=== PATIENT | male | born 1995 | race Caucasian/White ===

== ENCOUNTER → 2017-06-11 | Emergency (ER) | payer OTHER ==
[~2017-06-11] MED LIST: CHLORHEXIDINE GLUCONATE 4% CLEANSER FOR DECOLONIZATION TP SCH; CLINDAMYCIN 600MG PREMIX IVPB 600 MG/50 ML BAG IVPB ONE; CLINDAMYCIN PHOSPHATE 600 MG/4 ML VIAL ONE; DEXAMETHASONE SOD PHOSPHATE 10 MG/1 ML VIAL IVPUSH ONE; DEXAMETHASONE SOD PHOSPHATE 10 MG/1 ML VIAL ONE; DEXTROSE 5%-0.45% SALINE 1,000 ML IV SCH; MUPIROCIN 2% TOPICAL OINTMENT FOR DECOLONIZATION NS SCH; SODIUM CHLORIDE 1,000 ML IV STA
--- NOTE | 2017-06-11 12:04 | PDOC ---
History of Present Illness - General Chief Complaint: Sore Throat Stated Complaint: SORE THROAT Time Seen by Provider: 06/11/17 12:04 History Source: Patient, Parent(s) Exam Limitations: No Limitations - History of Present Illness Initial Comments: 21 yo M no significant PMH presents with 1 week history of URI symptoms- congestion, cough, chills, and throat pain. He states that the other symptoms have been improving, but that the throat pain has worsened. He states that today he noticed swelling under his jaw towards the left side. No fever. He has pain with swallowing, but he has been able to tolerate PO liquids and food, and he is tolerating his own secretions. Past History - Past Medical History Allergies/Adverse Reactions: Allergies Allergy/AdvReac Type Severity Reaction Status Date / Time No Known Allergies Allergy Verified 06/11/17 12:02 Home Medications: Ambulatory Orders NK [No Known Home Medication] 06/11/17 Review of Systems - Review of Systems Able to Perform ROS?: Yes Comments:: GENERAL/CONSTITUTIONAL: No fever. +Chills few days ago, resolved. No weakness. HEAD, EYES, EARS, NOSE AND THROAT: No change in vision. No ear pain or discharge. +Sore throat. CARDIOVASCULAR: No chest pain or shortness of breath. RESPIRATORY: No cough, wheezing, or hemoptysis. GASTROINTESTINAL: No nausea, vomiting, diarrhea or constipation. GENITOURINARY: No dysuria, frequency, or change in urination. MUSCULOSKELETAL: No joint or muscle swelling or pain. No neck or back pain. SKIN: No rash NEUROLOGIC: No headache, vertigo, loss of consciousness, or change in strength/ sensation. ENDOCRINE: No increased thirst. No abnormal weight change. HEMATOLOGIC/LYMPHATIC: No anemia, easy bleeding, or history of blood clots. ALLERGIC/IMMUNOLOGIC: No hives or skin allergy. *Physical Exam - Physical Exam Comments: GENERAL: Awake, alert, and fully oriented, in no acute distress HEAD: No signs of trauma EYES: PERRLA, EOMI, sclera anicteric, conjunctiva clear ENT: Auricles normal inspection, hearing grossly normal, nares patent, oropharynx clear without exudates. Moist mucosa. No tonsillar exudates. NECK: Normal ROM. No JVD. +Submandibular lymphadenopathy, L>>R. Compartments of the neck are soft. No trismus. Normal phonation. LUNGS: Breath sounds equal, clear to auscultation bilaterally. No wheezes, and no crackles HEART: Regular rate and rhythm, normal S1 and S2, no murmurs, rubs or gallops ABDOMEN: Soft, nontender, normoactive bowel sounds. No guarding, no rebound. No masses EXTREMITIES: Normal range of motion, no edema. No clubbing or cyanosis. No cords, erythema, or tenderness NEUROLOGICAL: Cranial nerves II through XII grossly intact. Normal speech, normal gait SKIN: Warm, Dry, normal turgor, no rashes or lesions noted. ED Treatment Course - LABORATORY CBC & Chemistry Diagram: 06/11/17 12:29 06/11/17 12:29 Medical Decision Making - Medical Decision Making 06/11/17 16:43 D/w Imaging care transition mgr. CT shows soft tissue involvement in left larynx, aryepiglottic fold. Will plan for admission. I will give clinda. I have already given decadron 10 mg. Patient has remained unchanged in ED- no worsening of symptoms. 06/11/17 17:33 Case d/w Dr. Maloney. Patient is tolerating solids and liquids PO in ED, tolerating secretions, no trismus. Recommended admission to floors, upgrade to ICU if any change in condition. D/w hospitalist, accepting patient to med/surg at [facility]. 06/11/17 17:58 No floor beds available at [facility]. D/w Dr. Maloney again, who is willing to accept patient to ICU overnight. *DC/Admit/Observation/Transfer Diagnosis at time of Disposition: Adenitis - Discharge Dispostion Condition at time of disposition: Stable Admit: Yes - Referrals - Patient Instructions - Post Discharge Activity
[2017-06-11 12:06] VITALS: BMI 27.7
[2017-06-11 12:48] LABS: BASO % 1.6 % (0-2.0); EOS % 2.6 % (0-4.5); HEMATOCRIT 43.3 % (35.4-49); HEMOGLOBIN 14.8 GM/dl (11.7-16.9); LYMPH % 22.5 % (8-40); MCH 28.6 pg (25.7-33.7); MCHC 34.2 g/dl (32.0-35.9); MEAN CELL VOLUME 83.8 fl (80-96); MEAN PLT VOLUME 7.6 fl (7.5-11.1); MONO % 7.4 % (3.8-10.2); NEUT % 65.9 % (42.8-82.8); PLATELET COUNT 284 K/MM3 (134-434); RBC 5.17 M/mm3 (4.00-5.60); RDW 11.5 % (11.9-15.9); WHITE BLOOD COUNT 5.1 K/mm3 (4.0-10.8)
[2017-06-11 12:52] LABS: INR 1.26 (0.82-1.09)
[2017-06-11 12:56] LABS: ALBUMIN 3.9 g/dl (3.5-5.0); ALK PHOS 54 U/L (32-92); ANION GAP 8 (8-16); BILIRUBIN,TOTAL 1.5 mg/dl (0.2-1.0); BLOOD UREA NITROGEN 13 mg/dl (7-18); CALCIUM 9.2 mg/dl (8.4-10.2); CHLORIDE 101 mmol/L (98-107); CO2 26 mmol/L (22-28); CREATININE 0.8 mg/dl (0.6-1.3); GLUCOSE,RANDOM 80 mg/dl (74-106); POTASSIUM 3.9 mmol/L (3.5-5.1); SGOT/AST 21 U/L (10-42); SGPT/ALT 17 U/L (10-40); SODIUM 135 mmol/L (136-145); TOT PROT 7.7 g/dl (6.4-8.3)
--- NOTE | 2017-06-11 21:30 | PDOC ---
*Physical Exam - Vital Signs Last Vital Signs Temp Pulse Resp BP Pulse Ox 98.9 F 75 16 111/66 98 06/11/17 20:09 06/11/17 20:09 06/11/17 12:01 06/11/17 20:09 06/11/17 20:09 ED Treatment Course - LABORATORY CBC & Chemistry Diagram: 06/11/17 12:29 06/11/17 12:29 - ADDITIONAL ORDERS Additional order review: Laboratory Results 06/11/17 06/11/17 06/11/17 13:31 12:29 12:29 PT with INR INR Sodium 135 L Potassium 3.9 Chloride 101 Carbon Dioxide 26 Anion Gap 8 BUN 13 Creatinine 0.8 Creat Clearance w eGFR > 60 Random Glucose 80 Calcium 9.2 Total Bilirubin 1.5 H AST 21 ALT 17 Alkaline Phosphatase 54 Total Protein 7.7 Albumin 3.9 Blood Type O POSITIVE O POSITIVE Antibody Screen Negative 06/11/17 12:29 PT with INR 14.0 H INR 1.26 H Sodium Potassium Chloride Carbon Dioxide Anion Gap BUN Creatinine Creat Clearance w eGFR Random Glucose Calcium Total Bilirubin AST ALT Alkaline Phosphatase Total Protein Albumin Blood Type Antibody Screen 06/11/17 12:30 Group A Strep Rapid Antigen - Final Throat 06/11/17 12:29 RBC 5.17 MCV 83.8 MCHC 34.2 RDW 11.5 L MPV 7.6 Neutrophils % 65.9 Lymphocytes % 22.5 Monocytes % 7.4 Eosinophils % 2.6 Basophils % 1.6 - Medications Given in the ED: ED Medications Discontinued Medications Generic Name Dose Route Start Last Admin Trade Name Freq PRN Reason Stop Dose Admin Dexamethasone Sodium Phosphate 10 mg 06/11/17 12:17 06/11/17 12:36 Decadron Injection - IVPUSH 06/11/17 12:18 10 mg ONCE ONE Administration Sodium Chloride 1,000 mls @ 1,000 mls/hr 06/11/17 12:17 06/11/17 12:36 Normal Saline - IV 06/11/17 13:16 1,000 mls/hr ASDIR STA Administration Clindamycin Phosphate 600 mg in 50 mls @ 100 mls/hr 06/11/17 16:39 06/11/17 16:52 Cleocin 600 Mg Premix Ivpb - IVPB 06/11/17 17:08 100 mls/hr ONCE ONE Administration Progress Note - Progress Note Progress Note: This patient was admitted to the ICU prior to my coming on duty. However I was just informed that the patient will not be getting an ICU bed. We do not have an ENT that can respond to emergencies here at this hospital. Since the CAT scan did show airway/larynx involvement of the soft tissue swelling and edema I am uncomfortable keeping the patient here in the ER until a bed becomes available. Called [facility] patient will be transferred to the ER there for evaluation and admission by the ENT service Dr. Landrum. *DC/Admit/Observation/Transfer Diagnosis at time of Disposition: Adenitis - Discharge Dispostion Condition at time of disposition: Stable - Referrals - Patient Instructions - Post Discharge Activity
[2017-06-11 21:51] VITALS: BP 135/80; PULSE 82; TEMP 98.5
== END | disposition short-term general hospital (02) ==
LOC: FER 12:01
PROC: 3E03329 Introduction of Other Anti-infective into Peripheral Vein, Percutaneous Approach (ICD-10-PCS; principal; 2017-06-11)
PROC: 3E033GC Introduction of Other Therapeutic Substance into Peripheral Vein, Percutaneous Approach (ICD-10-PCS; 2017-06-11)
PROC: 3E0337Z Introduction of Electrolytic and Water Balance Substance into Peripheral Vein, Percutaneous Approach (ICD-10-PCS; 2017-06-11)
DX: I88.9 Nonspecific lymphadenitis, unspecified (principal)
CPT/HCPCS: 36415; 70491-TC; 80053; 85025; 85610; 86850; 86900; 86901; 87040; 87070; 87430; 96361; 96365; 96375; 99283-25; J1100

== ENCOUNTER 2020-09-17 10:03 | Inpatient (IN) | payer OTHER ==
[2020-09-17 10:24] VITALS: BMI 33.5
[2020-09-17] MEDS ORDERED: METHOCARBAMOL 500 MG TABLET PO PRN (11:28)
[2020-09-17] MEDS ORDERED: METHADONE HCL 10 MG TABLET (FOR DETOX USE ONLY) PO ONE (11:28)
[2020-09-17] MEDS ORDERED: MENTHOL/PHENOL 1 EACH UD MM PRN (11:28)
[2020-09-17] MEDS ORDERED: MAGNESIUM CITRATE 300 ML BOTTLE PO PRN (11:28)
[2020-09-17] MEDS ORDERED: MAG HYDROX/AL HYDROX/SIMETH 30 ML UNIT-DOSE CUP PO PRN (11:28)
[2020-09-17] MEDS ORDERED: BISMUTH SUBSALICYLATE 262 MG/15 ML BTL PO PRN (11:28)
[2020-09-17] MEDS ORDERED: cloNIDine HCL 0.1 MG TABLET PO PRN (11:28)
[2020-09-17] MEDS ORDERED: ACETAMINOPHEN 325 MG TABLET (FP) PO PRN ×2 (11:28)
[2020-09-17] MEDS ORDERED: MAGNESIUM HYDROX 2400MG/30ML ORAL SUSPENSION 30 ML CUP PO PRN (11:28)
[2020-09-17] MEDS: PRENATAL VITAMINS W/ FOLIC ACID TABLET (FP) PO SCH (12:30)
[2020-09-17 13:13] LABS: HEMOGLOBIN 13.7 GM/dL (11.7-16.9); MCH 28.8 pg (25.7-33.7); MCHC 34.3 g/dl (32.0-35.9); MEAN PLT VOLUME 8.4 fl (7.5-11.1); PLATELET COUNT 212 K/MM3 (134-434); RBC 4.76 M/mm3 (4.00-5.60); RDW 12.6 % (11.9-15.9)
[2020-09-17 13:18] LABS: CALCIUM 8.6 mg/dL (8.5-10.1)
[2020-09-17 13:19] LABS: BLOOD UREA NITROGEN 18.1 mg/dL (7-18)
[2020-09-17 13:23] LABS: BILIRUBIN,TOTAL 0.9 mg/dL (0.2-1)
[2020-09-17 13:24] LABS: TOT PROT 7.1 g/dl (6.4-8.2)
[2020-09-17] MEDS: hydrOXYzine PAMOATE 25 MG CAPSULE (FP) PO SCH ×3 (13:33→22:22)
[2020-09-17 14:13] LABS: HIV INTERPRETATION NEGATIVE (NEGATIVE)
[2020-09-17] MEDS: MELATONIN 5 MG TABLETS PO SCH (22:22)
[2020-09-17] MEDS: THIAMINE HCL 100 MG TABLET (FP) PO SCH (22:22)
[2020-09-18] MEDS: hydrOXYzine PAMOATE 25 MG CAPSULE (FP) PO SCH ×5 (05:18→22:49)
[2020-09-18] MEDS ORDERED: METHADONE HCL 10 MG TABLET (FOR DETOX USE ONLY) ONE (09:32)
[2020-09-18] MEDS ORDERED: METHADONE HCL 5 MG TABLET (FOR DETOX USE ONLY) ONE (09:32)
[2020-09-18] MEDS ORDERED: METHADONE (DETOX) 20 MG, METHADONE (DETOX) 5 MG PO ONE (10:00)
[2020-09-18] MEDS: PRENATAL VITAMINS W/ FOLIC ACID TABLET (FP) PO SCH (10:32)
[2020-09-18] MEDS: diazePAM 5 MG TABLET PO PRN (18:17)
[2020-09-18] MEDS: MELATONIN 5 MG TABLETS PO SCH (22:49)
[2020-09-18] MEDS: THIAMINE HCL 100 MG TABLET (FP) PO SCH (22:49)
[2020-09-19] MEDS: hydrOXYzine PAMOATE 25 MG CAPSULE (FP) PO SCH ×5 (06:10→22:26)
[2020-09-19] MEDS ORDERED: METHADONE HCL 10 MG TABLET (FOR DETOX USE ONLY) PO ONE (10:00)
[2020-09-19] MEDS: PRENATAL VITAMINS W/ FOLIC ACID TABLET (FP) PO SCH (10:37)
[2020-09-19] MEDS: ONDANSETRON *ODT* 4 MG TABLET SL PRN ×2 (10:39→18:14)
[2020-09-19] MEDS: diazePAM 5 MG TABLET PO PRN ×2 (15:06→22:26)
[2020-09-19] MEDS: THIAMINE HCL 100 MG TABLET (FP) PO SCH (22:26)
[2020-09-19] MEDS: MELATONIN 5 MG TABLETS PO SCH (23:06)
[2020-09-20] MEDS: IBUPROFEN 400 MG TABLET (FP) PO PRN ×2 (05:36→22:39)
[2020-09-20] MEDS: ONDANSETRON *ODT* 4 MG TABLET SL PRN ×2 (05:37→22:39)
[2020-09-20] MEDS: hydrOXYzine PAMOATE 25 MG CAPSULE (FP) PO SCH ×5 (07:37→22:35)
[2020-09-20] MEDS ORDERED: METHADONE HCL 5 MG TABLET (FOR DETOX USE ONLY) ONE (08:49)
[2020-09-20] MEDS ORDERED: METHADONE HCL 10 MG TABLET (FOR DETOX USE ONLY) ONE (08:49)
[2020-09-20] MEDS ORDERED: METHADONE (DETOX) 10 MG, METHADONE (DETOX) 5 MG PO ONE (10:00)
[2020-09-20] MEDS: PRENATAL VITAMINS W/ FOLIC ACID TABLET (FP) PO SCH (10:05)
[2020-09-20 14:07] LABS: SARS-CoV-2 NAA Not Detected (Not Detected)
[2020-09-20] MEDS: MELATONIN 5 MG TABLETS PO SCH (22:35)
[2020-09-20] MEDS: THIAMINE HCL 100 MG TABLET (FP) PO SCH (22:35)
[2020-09-20] MEDS: diazePAM 5 MG TABLET PO PRN (22:37)
[2020-09-21] MEDS: hydrOXYzine PAMOATE 25 MG CAPSULE (FP) PO SCH (05:43)
[2020-09-21 09:13] VITALS: BP 127/74; PULSE 78; TEMP 98
[2020-09-21] MEDS ORDERED: METHADONE HCL 10 MG TABLET (FOR DETOX USE ONLY) PO ONE (10:00)
[2020-09-22] MEDS ORDERED: METHADONE HCL 5 MG TABLET (FOR DETOX USE ONLY) PO ONE (06:00)
== END 2020-09-21 10:02 | disposition home or self-care (01) | DRG 773 ==
LOC: YASAS 10:03 → Y6N 10:48
PROVIDERS: ADMIT Allergy & Immunology; ATTEND Allergy & Immunology
PROC: HZ2ZZZZ Detoxification Services for Substance Abuse Treatment (ICD-10-PCS; principal; 2020-09-17)
DX: F11.23 Opioid dependence with withdrawal (principal); F95.8 Other tic disorders; G24.5 Blepharospasm; H54.62 Unqualified visual loss, left eye, normal vision right eye; Z87.891 Personal history of nicotine dependence
CPT/HCPCS: 36415; 80053; 85027; 86780; 87389; 93005; 93010; C9803; Q0162; U0003; U0005

== ENCOUNTER 2021-12-31 22:45 | Emergency (ER) | payer OTHER ==
[2021-12-31 22:54] VITALS: BP 128/84; PULSE 60; RESP 18; TEMP 98; BMI 34.2
[2021-12-31] MEDS ORDERED: IBUPROFEN 400 MG TABLET (FP) PO ONE ×2 (23:16→23:41)
== END 2022-01-01 01:27 | disposition home or self-care (01) ==
LOC: JER 22:45
PROC: 0H9FXZZ Drainage of Right Hand Skin, External Approach (ICD-10-PCS; principal; 2021-12-31)
DX: L03.011 Cellulitis of right finger (principal)
CPT/HCPCS: 99283-25

== ENCOUNTER 2023-12-24 12:09 | Emergency (ER) | payer OTHER ==
[2023-12-24 12:19] VITALS: BP 123/85; PULSE 68; RESP 18; TEMP 98.7; BMI 36.9
[2023-12-24] MEDS ORDERED: methaDONE HCL 10 MG TABLET ONE (12:59)
[2023-12-24] MEDS: methaDONE HCL 40 MG DISPERSABLE TABLET PO ONE (13:05)
== END 2023-12-24 13:42 | disposition home or self-care (01) ==
LOC: JERFT 12:09
DX: F11.20 Opioid dependence, uncomplicated (principal)
CPT/HCPCS: 99283-25